=== PATIENT | female | born 1990 | race Hispanic/Latino ===

== ENCOUNTER 2016-10-25 01:03 | Inpatient (IN) | payer OTHER ==
[~2016-10-25] VITALS: Ht 160 cm; Wt 78.0 kg
[~2016-10-25 01:03] MED LIST: DERSP TOP; IBUP-1152 PO; LANOHPA TOP; PREN1TAB80 PO; TUCPAD TOP
[2016-10-25] MEDS ORDERED: Lactated Ringer's 1,000 ML IV PRN (07:51)
[2016-10-25] MEDS ORDERED: Carboprost 250 mCg/mL Inj IM PRN ×2 (07:55→21:55)
[2016-10-25] MEDS ORDERED: fentaNYL-PF 50 mCg/mL 2 mL Inj IVPUSH PRN (07:55)
[2016-10-25] MEDS ORDERED: Sodium Chloride LOK Flush 10 mL Syringe IVFLUSH PRN (07:55)
[2016-10-25] MEDS ORDERED: Oxytocin 10 Unit/mL Inj IM PRN ×2 (07:55→21:55)
[2016-10-25] MEDS ORDERED: diphenhydrAMINE 50 mg Capsule PO PRN (07:55)
[2016-10-25] MEDS ORDERED: Ondansetron 2 mg/mL 2 mL Inj IVPUSH PRN (07:55)
[2016-10-25] MEDS ORDERED: Methylergonovine 0.2 mg/mL Inj IM PRN ×2 (07:55→21:55)
[2016-10-25] MEDS ORDERED: Hemorrhage Kit, Post Partum XX ONE ×2 (07:55→21:55)
[2016-10-25] MEDS ORDERED: Oxytocin 30 Units/500 mL LR 30 UNITS in IV Premix 1 EACH IV PRN ×2 (07:55→21:55)
[2016-10-25] MEDS ORDERED: Misoprostol 25 mCg/0.25 Tablet VAGINAL SCH (07:55)
[2016-10-25 08:24] LABS: Mean Corpuscular Hemoglobin 25.1 pg (27.0-35.0)
--- NOTE | 2016-10-25 08:41 | PCM.HPOB ---
Subjective Referring Provider: Admitting Physician: Lidya Baker MD Primary Care Physician: Stephania Patton MD Attending Physician: Lidya Baker MD Chief Complaint "to be induced" History of Present History of Present Illness Ms. Fariba Ramirez is a 25 year old woman at 40 weeks gestation with an JACKSON of 10/25/16 based on LMP who presents to the [facility] ([facility]) to be electively induced. She reports that her prior two deliveries had meconium stained amniotic fluid, and she wanted to avoid that by being induced. She has had contractions for the past two week that have increased in frequency and severity. She had a gush of fluid 2 weeks ago but was cleared. She also had her membranes stripped in the clinic yesterday. She has noticed some mild blood tinged discharge since yesterday. She has not had any vaginal bleeding. She does not have headache, blurred vision, dizziness, or upper abdominal pain. During her , she travelled to [place]. OB History: (5), Para (2), Term (2), (2), Living (2) Past Medical History Obstetrical History: History of two spontaneous abortions History of two NSVDs History of hypertension during first Gynecologic History: No history of STIs Menarche at 13 years old Medical History: Mild anemia noted during and started on iron supplements Surgical History: Denies any previous surgeries Hx Tobacco Use: No Hx Alcohol Use: No Hx Substance Use: No Past Family History Family History Maternal grandmother has diabetes mellitus Mother has hypertension Living Arrangement: with Family Review of Systems Eyes: Denies: Blurred Vision, Double Vision Cardiovascular: Denies: Chest Pain, Palpitations Respiratory: Denies: SOB with Exertion Gastrointestinal: Denies: Abdominal Pain Neurological: Denies: Dizziness Medications Home medications Ferrous sulfate Colace Allergy Coded Allergies: No Known Allergies (Unverified Allergy, 07/30/12) Exam Vital Signs 98.1 degrees F, BP 124/81, HR 96 bpm, RR 20 Exam Baseline HR 150s bpm, moderate variability with accelerations, no decelerations Constitutional: Well-developed, Well-nourished, Normal habitus HEENT: Atraumatic, PERRLA, EOMI Lungs: Clear to Auscultation, Normal Air Movement Heart: Exam Unremarkable, Regular Rate/Rhythm, Normal S1, Normal S2, No Murmurs /Rubs/Gallops Abdomen: Gravid, Normal bowel sounds, Soft, No tenderness Extremities: Pulses Palpable x4, Warm, Edema (trace bilateral pedal) Neurological/Psychiatric: Alert, Oriented X3, Cooperative, No Acute Distress Neuro: Grossly Neurologically Intact, Cranial Nerves 3-12 nl, Normal Speech Labs/Diagnostics Labs Item Value Date Time Hemoglobin 10.3 g/dL L 10/25/16 0755 Hematocrit 32.0 % L 10/25/16 0755 Platelet Count 137 lenka/L L 10/25/16 0755 Maternal Blood Type: O (positive) Antibody Screen: Negative Group B Strep Results: Negative Rubella: Immune Additional Information labs: blood type O positive, antibody screen negative, Varicella equivocal, Rubella immune, RPR non reactive, HbsAg negative, HIV non reactive, chlamydia negative, gonorrhea negative, 1 hour glucose tolerance test within normal limits OB Intrapartum Assessment/Plan Assessment Ms. Fariba Ramirez is a 25 year old woman at 40 weeks gestation with an JACKSON of 10/25/16 based on LMP Intrapartum plan 25 year old woman at 40 weeks gestation with an JACKSON of 10/25/16 based on LMP - Start Cytotec every 4 hours as need based on initial solorio score of 5 and then Pitocin per protocol - Continue to monitor FHR and vital signs Anemia - Continue iron supplements Attending Statement agree with above evaluation and plan. Aspen Jackson DO Oct 25, 2016 08:09 Cassandra Pozo MD Oct 25, 2016 21:49
[2016-10-25] MEDS: Lactated Ringer's 1,000 ML IV SCH ×2 (13:09→19:43)
[2016-10-25] MEDS ORDERED: Lactated Ringer's 500 ML IV ONE (18:52)
[2016-10-25] MEDS ORDERED: Lactated Ringer's 1,000 ML IV SCH ×2 (18:52→21:52)
[2016-10-25] MEDS ORDERED: fentaNYL 2 mCg/mL-Bupiv 0.125% 100 ML EPIDURAL SCH (18:55)
[2016-10-25] MEDS ORDERED: EPHEDrine Sulfate 50 mg/mL Inj IVPUSH PRN (18:55)
[2016-10-25] MEDS ORDERED: Atropine 1 mg/10 mL (Code) Syringe IVPUSH PRN (18:55)
--- NOTE | 2016-10-25 19:58 | PCM.HPANE ---
Patient Data Surgeon Admitting Provider:Lidya Baker MD Attending Provider:Lidya Baker MD Primary Care Physician:Stephania Patton MD Other Provider:Michelle Cabral Anesthesia Reason for Visit Induction INDUCTION Ht/WT & BMI Body Mass Index Allergies Coded Allergies: No Known Allergies (Unverified Allergy, 07/30/12) Past Anesthesia History Anesthesia History: Denies:: Abnormal Airway, Anesthesia Reactions, Difficult Intubation, Fam Anesthesia Reaction, Fam Malignant Hypertherm, Malignant Hyperthermia Diabetes History Hx Diabetes?: No Medications Active Scripts Benzocaine (Dermoplast Oak)1 Oak/Gm Aero1 Oak TOP PRN PRN #1 Prov:Ana Jones CNM 05/10/13 [Witch Bethany/Glycerin] (Tucks Take Alongs) No Conflict Check1 Towelette TOP PRN PRN #1 Prov:Ana Jones [facility] 05/10/13 [Lanolin] (Lansinoh Ointment 7 Gm Tube) No Conflict Check1 Applic TOP PRN PRN # 1 Prov:Robert Ana Chava [facility] 05/10/13 IBUPROFEN-Expunged Drug, Do Not Renew! 800 Mg [id number] Mg PO Q6 PRN #30 Prov:Ana Jones [facility] 05/10/13 Reported Medications Vits W-Ca,Fe,FA(<1Mg) ( Vitamins)1 Each Tablet1 Each PO DAILY 04/15/14 History History of ENT Problems?: No HEENT History: Denies:: Abnormal Airway Cataracts Difficult Intubation Dysphagia Glaucoma Hearing Problem Sinus Problem TMJ Denture Type: None Teeth Condition: Within Normal Limits Hx of Heart Problems?: No Cardiovascular History: Denies:: AICD Abdominal Aortic Aneurism Atrial Fibrillation Cardiac Surgery Chest Pain Congestive Heart Failure Coronary Artery Disease Edema Heart Murmur Hypertension Irregular Heartbeat Pacemaker Peripheral Vascular Rheumatic Fever Thrombophlebitis Valvular Heart Disease Hx of Respiratory Problem?: No Respiratory History: Denies:: Asthma COPD Chest Surgery Cough Dyspnea Emphysema Hemoptysis Oxygen Administration Pneumonia Pulmonary Embolism Tuberculosis Use of C-PAP Machine Use of Inhalers / NEBS Hx Neurologic Problems?: No Neurological History: Denies:: Alzheimer's Disease CVA Dementia Dizziness Headaches Multiple Sclerosis Parkinson's Disease Peripheral Neuropathy Seizures TIA Hx of GI Problems?: No Gastrointestinal History: Denies:: Cirrhosis Diverticulitis Gall Bladder Disease Gastroesphageal Reflux Gastrointestinal Bleeding Heartburn Hepatitis Hiatal Hernia Liver Disease Rectal Bleeding Hx of Problems?: No Genitourinary History: Denies:: HX of Hemodialysis Kidney Stones Urinary Tract Infection HX of Peritoneal Dialysis: No Female Hx: Positive for:: Currently Denies:: Endometriosis Pelvic Inflammatory Problems with Breasts? Skin History: Denies:: History Skin Disorders? Pressure Ulcers Hx Musculoskeletal Problems?: No Musculoskeletal History: Denies:: Back Injury Degenerative Joint Fibromyalgia Joint Replacement Musculoskeletal Trauma Myasthenia Gravis Osteoarthritis Rheumatoid Arthritis Systemic Lupus Hx of Psycho/Social Problems?: No Psycho Social History: Denies:: Anxiety Bipolar Disorder Hx Depression Suicide Attempt Hx Surgeries?: No Hx Any Other Health Problems?: No Other History: Denies:: Cancer Endocrine Disease Hospitalization Thyroid Disease History Blood Transfusions: Denies:: Accept Blood Products? Blood Transfuse Reaction Blood Transfusions Hx Diabetes: No Hx Alcohol Use: NoHx Substance Use: No Smoking Status: Never Smoker Stop/Bang Risk Assessment Category Category 1A: Patient has history of documented sleep apnea, and HAS NOT received any narcotic, sedative or anesthesia administration during this stay. Category 1B: Patient has history of documented sleep apnea, and HAS received any narcotic , sedative or anesthesia administration during this stay Category 2: Patient has SUSPECTED Obstructive Sleep Apnea, and HAS received any narcotic , sedative or anesthesia administration during this stay. Category 3: Patient has SUSPECTED Obstructive Sleep Apnea and HAS NOT received narcotic, sedative or anesthesia administration during this stay. Category 4: Outpatient in Procedural Areas with known sleep apnea or who screen positive for High Risk via the STOP/BANG questionnaire. Exam Exam General Appearance: Alert, Oriented X3, Cooperative, No Acute Distress HEENT/AIRWAY: Mouth Opening (FROM) Lungs: Clear to Auscultation, Normal Air Movement Heart: Exam Unremarkable, Regular Rate/Rhythm, Normal S1, Normal S2, No Murmurs /Rubs/Gallops Meds/Labs/Diagnostics Admission Meds Current Medications Lactated Ringer's (Lr) 1,000 ml @ 125 mls/hr Q8H IV Last administered on 13:09; Start 10/25/16 at 07:51 Misoprostol (Cytotec) 25 mcg Q4H VAGINAL Last administered on 10/25/16 08:47; Start 10/25/16 at 07:55 Labs Test 10/25/16 07:55 White Blood Count 10.1th/mm3 (3.8-10.1) Red Blood Count 4.10mil/mm3 (3.90-5.20) Hemoglobin 10.3g/dL (12.0-15.6) Hematocrit 32.0% (35.0-46.0) Mean Corpuscular Volume 78.0fL (81-100) Mean Corpuscular Hemoglobin 25.1pg (27.0-35.0) Mean Corpuscular Hemoglobin Concent 32.2% (32.0-37.0) Red Cell Distribution Width 14.7% (12.3-15.4) Platelet Count 137bil/L (150-400) Plan Impression Patient chart reviewed, patient interviewed and anesthestic plan with risks, benefits, and alternatives discussed, and informed consent obtained. NPO per Anesth. Guidelines: Yes (Will follow L&D epidural guidelines) ASA Physical Status: ASA1 Normal Healthy Anesthetic Plan: Epidural Bene/Risks/Altern/Consents: Yes HP Complete Prior to Induction: Yes Bob Daiz MD Oct 25, 2016 18:55
[2016-10-25] MEDS ORDERED: LANOlin HPA 7 Gm Ointment TOPICAL PRN (21:55)
[2016-10-25] MEDS ORDERED: Benzocaine (Dermoplast) 20% 60 Gm Spray TOPICAL PRN (21:55)
[2016-10-25] MEDS ORDERED: Witch Hazel-Glycerin Pads TOPICAL PRN (21:55)
--- NOTE | 2016-10-25 22:37 | OP ---
[address] [address] OPERATIVE REPORT PATIENT: KATHLEEN BURNS : 1990 MR#: [id number] ADMIT: 10/25/2016 JOB ID: [id number] DATE OF SURGERY: 10/25/2016 SURGEON: Cassandra Pozo MD PREOPERATIVE DIAGNOSIS(ES): POSTOPERATIVE DIAGNOSIS(ES): This is a 25-year-old female. She is 3, para 3 now, status post vaginal delivery. She presented to [facility] this morning for scheduled induction of labor. One Cytotec was given in the morning for unfavorable cervix. Her cervix changed to be favorable after one dose of Cytotec and Pitocin started. AROM was performed in the evening around 4-5 p.m. After that, she had stronger contractions and she got epidural for pain management. She progressed spontaneously afterwards, and she was noticed to be fully dilated and had the urge to push. During the whole process, she had category 1 tracing. She has a reassuring heart tracing. She had a good effort to push and with several pushes, the was delivered at PHILIPPE position. The shoulder and chest delivered without difficulty. The was placed on mother's chest with good tone and spontaneous cry. Delayed cord clamp performed after the pulsation disappeared. Regular cord blood collected. Placenta delivered spontaneously completely and examined and has three-vessel cord. The uterus was well contracted after delivery of placenta. The perineum examined with no laceration. The patient tolerated the delivery well. All instrument, needles, laps and gauzes counted correct x2. The EBL during delivery was 100 cc.
--- NOTE | 2016-10-26 03:27 | PCM.ANEP1 ---
Post Anesthesia PACU Phase 1 Assessment Anesthetic Administered: Epidural Level of Alertness: Awake, talking MONZON's with Equal Strength: Yes Pain: Yes (after epidural wore off) Pain Scale Score: 4 Nausea or Vomiting: No CV Function & Hydration Stable: No Airway Device: N/A Oxygen Delivery: Room Air Lungs: Clear to Auscultation, Normal Air Movement Dermatome Level: Full Sensation PACU Phase 2 Assessment Complications: No Follow up Care: N/A Patient Instructions Provided: N/A Bob Diaz MD Oct 26, 2016 03:27
--- NOTE | 2016-10-26 06:58 | PCM.PNOBPP ---
Subjective Date of Service Oct 26, 2016 Post : Spontaneous Vaginal Delivery Visit History 25 year old now P3 woman who presented to the [facility] ([facility]) to be electively induced. She was given one dose of Cytotec then started on Pitocin. She delivered a female with Agars 9 and 9 weighing 3650 g on at 21:28. Subjective Ms. Ramirez has some abdominal cramping once Pitocin was started earlier this morning for vaginal bleeding. She reports that her lochia is moderate. She does not have dyspnea, palpitations, or lightheadedness. She has ambulated to the restroom without issue. She does not have nausea or vomiting. She ate last night after the delivery. She is urinating without issue. She is passing flatus. Her legs are not tender. Lochia: Other (moderate) Pain Management: PO pain meds Gastrointestinal: Good Appetite, No N/V, Passing Flatus Postop Activity: Ambulating in Room Only Group B Strep Results: Negative Rubella: Immune Blood Type: O (positive) Labs Laboratory Tests 10/25/16 07:55: White Blood Count 10.1, Red Blood Count 4.10, Hemoglobin 10.3, Hematocrit 32.0, Mean Corpuscular Volume 78.0, Mean Corpuscular Hemoglobin 25.1, Mean Corpuscular Hemoglobin Concent 32.2, Red Cell Distribution Width 14.7, Platelet Count 137 Exam Vital Signs Vital Signs Vital Signs Date Time Temp Pulse Resp B/P Pulse Ox O2 Delivery O2 Flow Rate FiO2 10/26/16 03:27 Room Air Vital Signs: VS reviewed, stable Exam Abdomen: Uterus is, Fundus firm (above umbilicus) : Voiding without difficulty Extremities: Normal pulses, No tenderness/swelling Lungs: Clear to Auscultation, Normal Air Movement Heart: Regular Rate/Rhythm, Normal S1, Normal S2, No Murmurs/Rubs/Gallops General: Alert, Oriented X3, Cooperative, No Acute Distress OB Post Assessment/Plan Assessment 25 year old now P3 woman at 40 weeks gestation with an JACKSON of 10/25/16 based on LMP Anemia Post plan: Continue routine post care, Discharge home tomorrow Plan: 25 year old now P3 woman at 40 weeks gestation with an JACKSON of 10/25/16 based on LMP - S/p on 10/25/16 at 21:28 - Continue Pitocin started for post- bleeding and start Methergine 0.2 mg TID PO - Continue to monitor vital signs Anemia - Repeat CBC this morning is pending - Resumed iron supplements with vitamin c Attending Statement The patient was seen and examined together with Dr. Jackson on 10/26/16 and I agree with the history, exam and plan as outlined in the note above. She is overall doing well this AM complaining of moderate to heavy lochia requiring starting of pitocin this AM. She is complaining of some crampiness since this but does not feel that her lochia has slowed. Her fundus is firm at the umbilicus. Labs are pending this AM. She is also complaining of some feelings of chest heaviness that she states is "normal for her". Vitals are stable. The remainder of her exam is benign. She is RH +/RI/ and does not need vaccines. Will start methergine 0.2 mg TID x24 hours orally this AM and await return for CBC and for improvement of lochia. Plan d/c home tomorrow if stable. Aspen Jackson DO Oct 26, 2016 06:58 Lidya Baker MD Oct 26, 2016 10:00
[2016-10-26 07:58] LABS: Mean Corpuscular Hemoglobin 24.8 pg (27.0-35.0)
[2016-10-26] MEDS ORDERED: Ascorbic Acid 500 mg Tablet PO SCH (08:00)
--- NOTE | 2016-10-26 15:05 | PCM.DIOB ---
Obstetrical Disch Instruction Dates of Hospitalization Date of Hospital Admission Oct 25, 2016 at 07:26 Providers Admitting Physician: Lidya Baker MD Primary Care Physician: Stephania Patton MD Attending Physician: Lidya Baker MD Diet Discharge Diet: No restrictions Activity Discharge Activity-General: Pelvic Rest for 6 weeks, Balance rest and activity , Activity as pain allows, No lifting >10 pounds for 4-6 weeks Dressing and Incisional Care Hygiene: May shower, NO bathtub, hot tub or whirlpool, Perineal care, Sitz bath , Dermoplast spray, Witch Bethany pads Follow Up Plan Follow-up Provider (F9): Cassandra Pozo MD Follow-up appointment: Weeks (6) Call your provider for: Fever or Chills, Shortness of breath, Heavy vaginal bleeding Lidya Baker MD Oct 26, 2016 15:05
[2016-10-26] MEDS ORDERED: IBUP800T28 PO (15:06)
--- NOTE | 2016-10-26 15:47 | DIS ---
[address] [address] DISCHARGE SUMMARY PATIENT: KATHLEEN BURNS : 1990 MR#: [id number] ADMIT: 10/25/2016 JOB ID: [id number] DIS: ADMISSION DIAGNOSIS: A 40-week intrauterine with post dates, admitted for postdate induction. DISCHARGE DIAGNOSIS: A 40-week intrauterine with post dates, admitted for postdate induction. PROCEDURE PERFORMED: Spontaneous vaginal delivery of a liveborn female born on October [birth year], 2014, at 2128 hours, weighing 3650 g or 8 pounds 1 ounce, with Apgars of 9 at one minute, 9 at five minutes. HOSPITAL COURSE: This is a 25-year-old, G 5, P 2-0-2-2 female, who presented at 40 weeks gestational age with EDC of October 25, 2016, for a planned induction of labor. She had meconium-stained amniotic fluid and requested an induction. She had a history of meconium-stained amniotic fluid in her previous two deliveries and was requesting an induction. Risks, benefits and alternatives were discussed with her. She elected to proceed. She was admitted on the to undergo the planned induction. Cytotec was placed and then Pitocin was started per protocol. She went on to deliver the liveborn female infant on the evening of the . Please see the operative report for full details. By day #1, she was doing well. Her pain was well controlled. She was tolerating a regular diet. She was voiding and ambulating well on her own. There was some concern that she had heavier lochia than anticipated, so Pitocin was given through the IV, and she was started on oral Methergine. However, laboratory data on day one showed that her hemoglobin was stable from 10.3 predelivery down to 10.0 on day one. Her white count had also increased from 10.1 to 13.4, and her platelets were low but stable at 136, down from 137 predelivery. It was at this point in time she was deemed stable for discharge. INSTRUCTIONS AT DISCHARGE: The patient was advised to remain at pelvic rest for six weeks including no tampons, douching, or intercourse. She was asked to call with any signs or symptoms of infection including fever greater than 100.5 degrees, severe pain, malodorous vaginal discharge, or bleeding more than a pad per hour. Medications at discharge included: 1. Ibuprofen 800 mg p.o. q.8 h. as needed for pain. 2. She was asked to continue her vitamins as prescribed. She is O positive. Rubella immune. Varicella immune. No vaccines were indicated. All questions and concerns of the patient were answered. She was deemed stable for discharge on day #1.
== END 2016-10-26 17:47 | disposition home or self-care (01) | DRG 775 ==
LOC: FBC 07:26
PROVIDERS: ADMIT Obstetrics & Gynecology; ATTEND Obstetrics & Gynecology
PROC: 10E0XZZ Delivery of Products of Conception, External Approach (ICD-10-PCS; principal; 2016-10-25)
PROC: 10907ZC Drainage of Amniotic Fluid, Therapeutic from Products of Conception, Via Natural or Artificial Opening (ICD-10-PCS; 2016-10-25)
PROC: 3E033VJ Introduction of Other Hormone into Peripheral Vein, Percutaneous Approach (ICD-10-PCS; 2016-10-25)
DX: O48.0 Post-term pregnancy (principal); O99.02 Anemia complicating childbirth; Z37.0 Single live birth; Z3A.40 40 weeks gestation of pregnancy